=== PATIENT | female | born 1955 | race Caucasian/White ===

== ENCOUNTER 2019-04-18 01:08 | Day surgery (SDC) | payer OTHER, SELFPAY ==
[2019-04-17 09:42] VITALS: BMI 32.3
[2019-04-18 08:19] LABS: Glucose Point of Care 129 (65-105)
[2019-04-18] MEDS: LACTATED RINGERS 1,000 ML 150 ML IV CONT (08:20)
[2019-04-18 08:22] VITALS: BP 184/80; PULSE 74; RESP 20; TEMP 36.2; O2SAT 98; BMI 32.7
--- NOTE | 2019-04-18 09:02 | P.CONGI_ITS ---
Assessment and Plan Additional Plan This is a 63-year-old white female patient seen in evaluation at the request of Dr. Dale. Patient presents for neoplasia screening. Her current weight appetite bowel movements are normal. She denies abdominal pain she has had no bleeding. Her bowel habits are normal. Family history is significant her father and sister have had colon polyps. Past medical history is significant for diabetes and hypertension. She has a history of a TIA. Current medications include hydrochlorothiazide, aspirin, metoprolol, and pravastatin, she has no stated drug allergies. Physical exam reveals her to be alert. Vital signs stable. HEENT exam unremarkable. Lungs are clear to auscultation and percussion. Heart is without murmur or extra sounds. Abdominal exam bowel sounds are present soft nontender with no organomegaly. Digital external rectal exam normal. Impression 1. Family history of colon polyps. Plan is for neoplasia screening colonoscopy now and at 5 year intervals in the future. GI Consult Note Consult date/time: 04/18/19 09:02 HPI: Renea Wylie is a 63 year old female [facility] Past Medical History Medical History (Updated 02/17/19 @ 09:47 by Alok Dale MD) Bursitis of left hip Dyslipidemia Environmental allergies Essential (primary) hypertension History of TIA (transient ischemic attack) TIA (transient ischemic attack) Type 2 diabetes mellitus without complication, without long-term current use of insulin Surgical History Surgical History Hx of dilation and curettage 01/2008 Family History Family History (Updated 02/17/19 @ 09:29 by Chikis Ward) Father Family history of coronary artery disease, Onset Age: 78 Grandparent Cancer Father Aneurysm Social History Social History Smoking status: Never smoker Second hand tobacco smoke exposure: No Alcohol intake: never Substance use: never Substance use type: does not use Gender identity (if verbalized by the patient): Female Meds Home Medications and Allergies Home Medications Medication Instructions Recorded Confirmed Type aspirin 325 mg tablet 325 mg PO DAILY 12/30/18 04/17/19 History canagliflozin 300 mg tablet 300 mg PO DAILY 12/30/18 04/17/19 History metoprolol succinate 25 mg 25 mg PO DAILY 12/30/18 04/17/19 History tablet,extended release 24 hr losartan 100 1 tablet PO DAILY #90 tablet 04/14/19 04/17/19 Rx mg-hydrochlorothiazide 25 mg tablet pravastatin 40 mg tablet 40 mg PO DAILY #90 tablet 04/14/19 04/17/19 Rx Allergies Allergy/AdvReac Type Severity Reaction Status Date / Time No Known Allergies Allergy Unknown Unverified 04/18/19 08:21 Vital Signs Vital Signs - 24 hr 04/18/19 08:22 Temperature 36.2 C L Pulse Rate 74 Respiratory Rate 20 Blood Pressure 184/80 H Pulse Oximetry 98
--- NOTE | 2019-04-18 09:21 | WPDANESEPPF ---
Anes - Initial Pre Proc Eval Procedure: Operation Date: 04/18/19 09:00 Proposed Procedures p Screening Colonoscopy - Karl Land MD Date/Time: 04/18/19 09:21 Surgeon: Karl Land MD Pre Op Diagnosis: Neoplasm Screening/ Fam Hx Colon Polyps Patient Data Age: 63 Gender: F Height: 5 ft 6 in Weight: 91.9 kg Last Vital Signs Temp 97.1 F L 04/18/19 08:22 Pulse 74 04/18/19 08:22 Resp 20 04/18/19 08:22 BP 184/80 H 04/18/19 08:22 Pulse Ox 98 04/18/19 08:22 Allergies Allergy/AdvReac Type Severity Reaction Status Date / Time No Known Allergies Allergy Unknown Unverified 04/18/19 08:21 Home Medications Medication Instructions Recorded Confirmed Type aspirin 325 mg tablet 325 mg PO DAILY 12/30/18 04/17/19 History canagliflozin 300 mg tablet 300 mg PO DAILY 12/30/18 04/17/19 History metoprolol succinate 25 mg 25 mg PO DAILY 12/30/18 04/17/19 History tablet,extended release 24 hr losartan 100 1 tablet PO DAILY #90 tablet 04/14/19 04/17/19 Rx mg-hydrochlorothiazide 25 mg tablet pravastatin 40 mg tablet 40 mg PO DAILY #90 tablet 04/14/19 04/17/19 Rx Laboratory Tests 04/18/19 08:14 POC Capillary Glucose 129 mg/dl H mg/dl (65-105) Patient hx anesthesia problems: none Family hx anesthesia problems: none PMFSH Past Medical History Medical History (Updated 02/17/19 @ 09:47 by Alok Dale MD) Bursitis of left hip Dyslipidemia Environmental allergies Essential (primary) hypertension History of TIA (transient ischemic attack) TIA (transient ischemic attack) Type 2 diabetes mellitus without complication, without long-term current use of insulin Surgical History Surgical History Hx of dilation and curettage 01/2008 Family History Family History (Updated 02/17/19 @ 09:29 by Chikis Ward) Father Family history of coronary artery disease, Onset Age: 78 Grandparent Cancer Father Aneurysm Social History Social History (Reviewed 02/17/19 @ 09:27 by Chikis Stevens Smoking status: Never smoker Second hand tobacco smoke exposure: No Alcohol intake: never Substance use: never Substance use type: does not use Gender identity (if verbalized by the patient): Female Anes - Eval Final PreProcedure Day of Procedure 04/18/19 09:21 Patient weight: obese Heart: regular rate and rhythm Lungs: clear to auscultation Airway: Mallampati scale class III Neurological: alert and oriented Last oral intake: >/= 8 hours ASA classification: III Emergent: no Anesthetic plan: proceed Anesthesia type and monitoring: general GIVS and standard monitoring Informed Consent: The patient's anesthetic plan and its attendant risks and benefits were discussed with the patient/family/POA. Questions were solicited and answers provided to the satisfaction of the patient/family/POA.
[2019-04-18 10:24] VITALS: BP 119/63; PULSE 69; RESP 21; O2SAT 98
[2019-04-18 10:34] VITALS: BP 128/67; PULSE 67; RESP 17; O2SAT 99
[2019-04-18 10:44] VITALS: BP 130/67; PULSE 65; RESP 15; O2SAT 99
== END 2019-04-18 11:00 | disposition home or self-care (01) ==
PROVIDERS: PCP Family Medicine; Visit Provider Internal Medicine Gastroenterology
PROC: 0DJD8ZZ Inspection of Lower Intestinal Tract, Via Natural or Artificial Opening Endoscopic (ICD-10-PCS; CPT 45378; principal; 2019-04-18 09:00)
DX: Z12.11 Encounter for screening for malignant neoplasm of colon (principal); K57.30 Diverticulosis of large intestine without perforation or abscess without bleeding; K64.8 Other hemorrhoids; Z83.71 Family history of colonic polyps; I10 Essential (primary) hypertension; E11.9 Type 2 diabetes mellitus without complications; E78.5 Hyperlipidemia, unspecified; Z86.73 Personal history of transient ischemic attack (TIA), and cerebral infarction without residual deficits; Z79.82 Long term (current) use of aspirin; E66.9 Obesity, unspecified; Z68.32 Body mass index [BMI] 32.0-32.9, adult
CPT/HCPCS: 45378; J2704; J7120

== ENCOUNTER 2020-01-17 08:02 | Outpatient (CLI) | payer OTHER, SELFPAY ==
--- NOTE | ~2020-01-17 | MM_ITS ---
EXAMINATION: MM screening [facility] BI w sarabjit HISTORY: Screening mammogram TECHNIQUE: Craniocaudal and mediolateral oblique 3-D tomosynthesis images were obtained and synthetic 2-D images were generated. CAD analysis was submitted and interpreted. COMPARISON: 12/21/2018, 01/24/2013, 11/14/2011 BREAST PARENCHYMAL COMPOSITION: There are scattered areas of fibroglandular density. FINDINGS: Stable bilateral breast masses are considered benign given the lack of interval change. The re is no evidence of suspicious mass, calcification, or architectural distortion to suggest malignanc y in either breast. There has been no suspicious interval change. IMPRESSION: 1. No mammographic evidence of malignancy. 2. Recommend routine screening mammography in one year. BI-RADS Category 2: Benign finding(s). Reviewed, dictated and finalized at location A. ER
== END 2020-01-17 08:03 | disposition home or self-care (01) ==
LOC: ANHIMG 08:04
PROVIDERS: PCP Family Medicine; Visit Provider Student in an Organized Health Care Education/Training Program
DX: Z12.31 Encounter for screening mammogram for malignant neoplasm of breast (principal)
CPT/HCPCS: 77063; 77067

== ENCOUNTER 2020-05-17 16:48 | Outpatient (CLI) | payer OTHER, SELFPAY | END 2020-05-17 16:49 | disposition home or self-care (01) | LOC: ANHCOVIDVC 16:48 | PROVIDERS: PCP Family Medicine | DX: Z23 Encounter for immunization (principal) | CPT/HCPCS: 0001A; 91300 ==

== ENCOUNTER 2020-06-07 16:46 | Outpatient (CLI) | payer OTHER, SELFPAY | END 2020-06-07 16:47 | disposition home or self-care (01) | LOC: ANHCOVIDVC 16:46 | PROVIDERS: PCP Family Medicine | DX: Z23 Encounter for immunization (principal) | CPT/HCPCS: 0002A; 91300 ==

== ENCOUNTER 2021-04-03 09:24 | Inpatient (IN) | payer OTHER, SELFPAY ==
[2021-04-03] VITALS (11 sets, daily range): BP systolic 103–137; BP diastolic 69–84; PULSE 95–134; RESP 15–21; TEMP 36.2–37.7; O2SAT 97–100
--- NOTE | ~2021-04-03 | CT_ITS ---
EXAMINATION: CT abdomen pelvis wo con DATE: 04/03/2021 14:45 INDICATION: Heavy vaginal bleeding TECHNIQUE: Computed tomography (CT) of the abdomen and pelvis was performed without intravenous contr ast. The dose-length product (DLP) was 817.53 mGy-cm. Automated exposure control and iterative recons truction technique were employed. COMPARISON: None FINDINGS: The lung bases are clear. The heart size is normal. There is a small sliding hiatal hernia. Within the limitations of noncontrast examination, liver, gallbladder, pancreas, and adrenal glands are normal. Punctate calcifications in an otherwise normal spleen likely represent healed granulomato us disease. The kidneys are unremarkable. No pathologically enlarged abdominal or pelvic lymph nodes are identified. There is no free intraperitoneal gas or evidence of bowel obstruction. The appendix i s normal. There is mild lumbar spondylosis. IMPRESSION: 1. No CT correlate for the patient's symptoms. Reviewed, dictated and finalized at location F. /[employer]
--- NOTE | ~2021-04-03 | US_ITS ---
EXAMINATION: US pelvic complete EXAM DATE: 04/03/2021 10:33 INDICATION: Vaginal bleeding . TECHNIQUE: Pelvic transabdominal sonogram was performed. There are multiple grayscale and Doppler im ages available for interpretation. There is no prior study for comparison. FINDINGS: Uterus measures 10.7 x 7.1 x 8.2 cm, and is morphologically normal. Endometrial stripe me asures 6 mm, within normal limits. There is no free pelvic fluid. Right adnexa: The ovary measures 2.8 x 1.5 x 1.8 cm and is morphologically normal. Ovarian vascular f low confirmed. Left adnexa: The ovary measures 2.4 x 1.3 x 1.5 cm and is morphologically normal. Ovarian vascular fl ow confirmed. IMPRESSION: Unremarkable pelvic ultrasound exam. Reviewed, dictated and finalized at location A. D ESCORT
--- NOTE | ~2021-04-03 | US_ITS ---
EXAMINATION: US renal BI EXAM DATE: 04/04/2021 14:14 INDICATION: Elevated creatinine. TECHNIQUE: Multiple grayscale and Doppler images of the kidneys were obtained (by a technologist who performed the scan) and subsequently reviewed. There is no prior study for comparison. FINDINGS: Right kidney: There is normal contour and echogenicity. It measures 10.4 x 4.4 x 5.4 centimeters. T here are no focal renal lesions identified. There is no hydronephrosis. Left kidney: There is normal contour and echogenicity. It measures 10.1 x 3.7 x 4.9 centimeters. Th ere are no focal renal lesions identified. There is no hydronephrosis. Bladder unremarkable. IMPRESSION: 1. Sonographically unremarkable kidneys. Reviewed, dictated and finalized at location B. [employer]
[2021-04-03 09:54] LABS: Basophils Absolute Auto 0.1 K/mm3 (0.0-0.1); Basophils Percent Auto 0.6 % (0.2-1.2); Eosinophils Percent Auto 0.1 % (0-4.4); Hematocrit 42.3 % (37.0-47.0); Hemoglobin 13.6 g/dL (12.0-15.0); Immature Granulocyte Absolute 0.07 K/mm3 (0.00-0.031); Immature Granulocyte Percent A 0.5 % (0-0.5); Lymphocytes Absolute Auto 1.74 K/mm3 (0.9-3.2); Lymphocytes Percent Auto 13.1 % (18.3-44.2); Mean Corpuscular HGB Conc 32.2 g/dl (32-36); Mean Corpuscular Hemoglobin 30.3 pg (26-34); Mean Corpuscular Volume 94.2 fl (80-100); Mean Platelet Volume 10.1 fl (7.4-10.4); Monocytes Absolute Auto 0.5 K/mm3 (0.1-0.6); Monocytes Percent Auto 3.4 % (2.6-8.5); Neutrophils Percent Auto 82.3 % (45.5-73.1); Platelet Count Result 348 k/mm3 (150-375); Red Blood Count 4.49 M/mm3 (4.2-5.4); White Blood Count 13.3 K/mm3 (4.5-10.0)
[2021-04-03 10:05] LABS: INR 1.1; Prothrombin Time 13.5 Seconds (11.1-14.7)
--- NOTE | 2021-04-03 10:09 | ED.FEMALEGU ---
HPI - Female Genitourinary General Chief complaint: Vaginal Bleeding Stated complaint: Vaginal bleeding Time Seen by Provider: 04/03/21 09:47 Source: patient Mode of arrival: ambulatory Limitations: no limitations History of Present Illness HPI Narrative: 65 years old white female presented to the ED with vaginal bleeding with a lot of blood clots started 5 AM today. Patient on aspirin. Patient denies having similar symptoms after menopause. Urinary patient denies any family history of breast cancer, ovarian cancer or uterine cancer. History of diabetes, hypertension, hyperlipidemia, patient does not smoke or drink or uses drugs. Patient denies any fever chills nausea vomiting diarrhea constipation urinary symptoms or recent sexual intercourse Related Data Home Medications Medication Instructions Recorded Confirmed aspirin 81 mg tablet,delayed 81 mg PO DAILY 04/05/20 02/28/21 release Allergies Allergy/AdvReac Type Severity Reaction Status Date / Time metformin AdvReac Intermediate Diarrhea Verified 04/03/21 09:42 Review of Systems Review of Systems: CONSTITUTIONAL: Denies fever, chills, or sweats. EYES: Denies visual changes, redness, or discharge. ENT: Denies rhinorrhea, congestion, sore throat, or otalgia. CARDIOVASCULAR: Denies chest pain, palpitations, or edema. RESPIRATORY: Denies cough or dyspnea. GASTROINTESTINAL: Denies abdominal pain, nausea, vomiting, or diarrhea. GENITOURINARY: Denies dysuria or hematuria. SKIN: Denies rash or itching. MUSCULOSKELETAL: Denies back pain, joint pain, or myalgia. NEUROLOGIC: Denies headache, numbness, or weakness. PSYCHIATRIC: Denies anxiety or depression. [facility] Past Medical History Medical History BMI 33.0-33.9,adult BMI 34.0-34.9,adult BMI over 35 Bursitis of left hip Dyslipidemia Environmental allergies Essential (primary) hypertension History of one miscarriage History of TIA (transient ischemic attack) History of vaginal delivery x 2 Indigestion Rash TIA (transient ischemic attack) Type 2 diabetes mellitus without complication, without long-term current use of insulin Surgical History Surgical History Hx of dilation and curettage 01/2008 Family History Family History Father Family history of coronary artery disease, Onset Age: 78 Grandparent Cancer Father Aneurysm Social History Social History Second hand tobacco smoke exposure: No Alcohol intake: never Substance use: never Substance use type: does not use Gender identity (if verbalized by the patient): Female Exam Narrative: General appearance: Well-developed, well-nourished Skin: Normal color Head: Normocephalic, nontraumatic Eyes: Clear conjunctiva ENT: Oropharynx normal, ears normal, nose normal Neck: Supple, nontender Chest and respiratory: Airway patent, no respiratory distress, no accessory muscle use Heart: Regular rate/rhythm Abdomen: Soft, nontender, no organomegaly, quiet bowel sounds Vascular: Normal peripheral pulses, normal capillary refill. Musculoskeletal: Normal range of motion, nontender back Neurologic: Alert and oriented ?3, [employer] is normal as tested, no gross motor deficit : External Female Exam: normal external appearance Speculum Exam - Vagina: normal appearance of the vagina Bimanual exam- vagina & uterus: normal palpation Bimanual Exam- Adnexa, other: no masses OB/external & speculum: Active bleeding present (Active bleeding, mild, a lot of blood clots)
[2021-04-03 10:12] LABS: Alanine Aminotransferase 32 U/L (4-35); Albumin Level 4.5 g/dL (3.5-5.1); Alkaline Phosphatase 100 U/L (38-126); Anion Gap 15 mmol/L (8-16); Aspartate Amino Transferase 36 U/L (14-36); Bilirubin,Total 1.1 mg/dL (0.2-1.3); Blood Urea Nitrogen 18 mg/dL (7-17); Calcium 8.7 mg/dL (8.4-10.2); Carbon Dioxide 21 mmol/L (22-30); Chloride 102 mmol/L (98-107); Estimated Glomerular Filt Rate 35; Glucose 283 mg/dL (65-110); Potassium 3.5 mmol/L (3.4-5.0); Sodium 138 mmol/L (137-145)
[2021-04-03] MEDS: SODIUM CHLORIDE 0.9% IV 1,000 ML 999 ML IV CONT (12:01)
[2021-04-03] MEDS: ONDANSETRON INJ 4 MG/2 ML VIAL IV PUSH (12:14)
[2021-04-03] MEDS: MORPHINE SULFATE (*CRX) 4 MG/ML INJ IV PUSH (12:17)
--- NOTE | 2021-04-03 13:33 | PM.IMHP ---
H&P: HPI History of Present Illness Date/Time: 04/03/21 13:33 Patient presented to the ED with complaints of heavy vaginal bleeding starting this am at 0500 when she woke up. She states that for two weeks she had noticed dark spotting with wiping and had some abdominal cramping. She has been menopausal for years. She was passing clots. She denied lightheadedness and dizziness this am. I spoke to her around 0730 when she called the answering service due to the bleeding and was not having any hypovolemic symptoms. She was informed if bleeding persist for another hour if saturating more than a pad an hour and/or lightheaded or dizzy to come in to the ED. She did start having lightheadedness and went to ED in ED she was symptomatic and moderate blood and clots in the vagina. She did receive IV fluids which improved her hypovolemic symptoms. H/H, platelets normal. Pelvic ultrasound showed EM 6mm. No other findings. She denies any recent intercourse or vaginal penetration or any excessive activity recently. She has never had postmenopausal bleeding before. Last pap in 10/2020 normal neg HPV. No smoking history. 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 Denies pelvic pain. Her creatinine was elevated which has been mildly in past on chart review. Coags normal today. Chief Complaint: vaginal bleeding Review of Systems Review of Systems: All systems reviewed & are unremarkable except as noted in HPI and below Eyes: Eyes: Reports no additional eye complaints Cardiovascular: Cardiovascular: Reports no additional cardiovascular complaints, Denies chest pain and Denies dyspnea Respiratory: Respiratory: Reports no additional respiratory complaints Gastrointestinal: Gastrointestinal: Denies abdominal pain, Denies change in bowel habits, Denies diarrhea, Denies nausea, Denies vomiting and Reports other (no unexplained weight loss) Genitourinary: Genitourinary: Denies pelvic pain Integumentary/Breasts: Skin/Breast: Reports system reviewed and no additional complaints, except as docu Neurologic: Reports system reviewed and no additional complaints, except as documented PMFSH Past Medical History Medical History BMI 33.0-33.9,adult BMI 34.0-34.9,adult BMI over 35 Bursitis of left hip Dyslipidemia Environmental allergies Essential (primary) hypertension History of one miscarriage History of TIA (transient ischemic attack) History of vaginal delivery x 2 Indigestion Rash TIA (transient ischemic attack) Type 2 diabetes mellitus without complication, without long-term current use of insulin Surgical History Surgical History Hx of dilation and curettage 01/2008 Family History Family History Father Family history of coronary artery disease, Onset Age: 78 Grandparent Cancer Father Aneurysm Social History Social History Second hand tobacco smoke exposure: No Alcohol intake: never Substance use: never Substance use type: does not use Gender identity (if verbalized by the patient): Female Meds Home Medications and Allergies Home Medications Medication Instructions Recorded Confirmed Type aspirin 81 mg tablet,delayed 81 mg PO DAILY 04/05/20 02/28/21 History release empagliflozin 25 mg tablet See Rx Instructions .ROUTE 10/04/20 02/28/21 Rx .COMPLEX #90 each dulaglutide 0.75 mg/0.5 mL 0.75 mg SUBCUT WEEKLY #2 ml 10/28/20 02/28/21 Rx subcutaneous pen injector losartan 100 1 tablet PO DAILY #90 tablet 11/02/20 02/28/21 Rx mg-hydrochlorothiazide 25 mg tablet pravastatin 40 mg tablet See Rx Instructions .ROUTE 11/02/20 02/28/21 Rx .COMPLEX #90 each triamcinolone acetonide 0.1 % 1 applic TOPICAL BID #80 g 11/15/20 02/28/21 Rx topical cream metoprolol succinate 25 mg See Rx Instructions .ROUTE
--- NOTE | 2021-04-03 13:44 | PC.NURSE ---
DR RAMSEY AT BEDSIDE FOR EXAM AND BIOPSY. PT TOLERATED THE PROCEDURE WELL. VAGINAL PACKING WAS PLACED BY DR RAMSEY WITH NO BLOODY SHOW NOTED THUS FAR.
--- NOTE | 2021-04-03 14:05 | W.PM.PROC2 ---
Procedure Note - Detailed Date of Procedure 04/03/21 Pre-op Diagnosis Vaginal bleeding Post-op Diagnosis same Procedure Performed Endometrial biopsy Surgeon Damaso Delgado MD Anesthesia none Indications Postmenopausal bleeding Findings Moderate amount of tissue and clot Description of Procedure After informed consent obtained. Speculum inserted. Clots cleared from vagina and cervix. Cervix prepped with betadine. Single tooth tenaculum placed on cervix. Uterus sound to 8 cm. 3 passes of with endometrial pipelle since a moderate amount of clot obtained. Estimated Blood Loss 5 Drains No Packing Yes (vag) Pathology yes (pap also obtained.) Complications No immediate complications Condition stable Disposition observation
[2021-04-03 15:08] LABS: Hemoglobin 12.1 g/dL (12.0-15.0)
--- NOTE | 2021-04-03 15:36 | PC.NURSE ---
This patient, Renea Wylie, was received from E.. on 04/03/21 at 1536. Patient oriented to unit policies and routines
[2021-04-03] MEDS: LOSARTAN POTASSIUM 100 MG TABLET PO (18:36)
[2021-04-03] MEDS: PRAVASTATIN SODIUM 20 MG TABLET 40 MG PO (18:37)
[2021-04-03] MEDS: METOPROLOL TARTRATE 25 MG TABLET PO (18:37)
[2021-04-03 21:26] LABS: Basophils Percent Auto 0.2 % (0.2-1.2); Hematocrit 32.6 % (37.0-47.0); Hemoglobin 10.9 g/dL (12.0-15.0); Immature Granulocyte Absolute 0.05 K/mm3 (0.00-0.031); Immature Granulocyte Percent A 0.4 % (0-0.5); Lymphocytes Absolute Auto 1.23 K/mm3 (0.9-3.2); Lymphocytes Percent Auto 9.5 % (18.3-44.2); Mean Corpuscular HGB Conc 33.4 g/dl (32-36); Mean Corpuscular Hemoglobin 30.7 pg (26-34); Mean Corpuscular Volume 91.8 fl (80-100); Mean Platelet Volume 9.9 fl (7.4-10.4); Monocytes Absolute Auto 0.7 K/mm3 (0.1-0.6); Monocytes Percent Auto 5.3 % (2.6-8.5); Neutrophils Percent Auto 84.6 % (45.5-73.1); Platelet Count Result 255 k/mm3 (150-375); Red Blood Count 3.55 M/mm3 (4.2-5.4); Red Cell Distribution Width 13.1 % (11.5-14.5)
[2021-04-04] VITALS (8 sets, daily range): BP systolic 107–143; BP diastolic 56–72; PULSE 76–92; RESP 14–18; TEMP 36.5–37.7; O2SAT 95–98
[2021-04-04 05:02] LABS: Hematocrit 30.7 % (37.0-47.0); Hemoglobin 10.2 g/dL (12.0-15.0)
[2021-04-04 05:11] LABS: Anion Gap 8 mmol/L (8-16); Blood Urea Nitrogen 28 mg/dL (7-17); Carbon Dioxide 24 mmol/L (22-30); Chloride 103 mmol/L (98-107); Estimated Glomerular Filt Rate 24; Glucose 129 mg/dL (65-110); Potassium 3.9 mmol/L (3.4-5.0); Sodium 135 mmol/L (137-145)
[2021-04-04] MEDS: LACTATED RINGERS 1,000 ML 125 ML (07:58)
[2021-04-04 11:49] LABS: Add Urine Microscopic? YES; Appearance Urine Turbid (Clear); Bacteria Urine Trace /hpf; Bilirubin Urine Negative (Negative); Blood Urine 3+ (Negative); Color Urine Amber (Yellow); Glucose Urine UA 3+ mg/dL (Negative); Ketones Urine Negative (Negative); Leukocyte Esterase Ur Trace LEU/UL (NEGATIVE); Mucus Urine Rare /lpf; Nitrate Urine Negative (Negative); Protein Urine Negative (Negative); Specific Grav Ur 1.027 (1.001-1.035); Squamous Epithelial Cell Urine Moderate /hpf (Few); Urobilinogen Urine Negative mg/dL (<2.0); WBC Urine 21-30 /hpf (0-3)
[2021-04-04 11:52] LABS: Creatine Kinase 80 U/L (30-135)
[2021-04-04 12:20] LABS: Creatinine Urine 228.3 mg/dL; Total Protein Urine Random 6 mg/dL; Ur Ttl Prot Creatinine Ratio 0.03 mg/mg (0-0.20)
[2021-04-04 12:31] LABS: Sodium Urine Random 36 meq/L
--- NOTE | 2021-04-04 13:11 | PM.CNNEP ---
Assessment and Plan Additional Plan 1. the patient has Chronic kidney disease. The creatinine before her admission today was in 2019 it was 1.2. It is unclear what her true baseline is. We can ask Dr. Figueroa's office to send over some blood work. most likely her elevated creatinine is due to diabetes and/or hypertension. Depending on how much protein is in the urine will determine how much each is contributing. There are other causes of kidney disease such as glomerulonephritis, interstitial nephritis, obstruction, cystic disease, and stone disease. She does not really have any signs or symptoms of any of these. 2. The patient has acute kidney injury as well. This is in the setting of significant vaginal bleeding. She has blood glucose a few red cells and a few white cells in the urine. We can check a urine culture. It is unclear how much of this is contamination from her vagina. Will check a urine culture and see where this goes. She has does not have any symptoms of infection. With all the bleeding, dehydration may be playing a role. Her hemoglobin is not low enough to lead directly to poor renal perfusion though. There are other causes of kidney disease as well including obstruction, acute nephritis, allergic interstitial nephritis, but there are no signs or symptoms or suggestions from the history that these would be playing a role. I agree with continuing the IV fluids and see how she does. 3. anemia. The patient is getting evaluated for why she is bleeding vaginally. 4. Hematuria this is probably contamination. We can repeat the urinalysis once the vaginal bleeding is solved. History of Present Illness Reason for Consult Consult date: 04/04/21 Chief Complaint Chief complaint: Dysfunctional Uterine Bleeding, RICK History of Present Illness Narrative: Renea is a very pleasant 65-year-old lady who has Diabetes, hypertension, hyperlipidemia, obesity, TIA, indigestion, and chronic kidney disease. She says that Dr. Hi has been watching her kidneys for the last few years. Her creatinine in January of 2020 was 1.22. The patient says that she has been spotting for the last few weeks. Then she started having more and more hemorrhaging with clots. She came to the ER. She had clots in her vagina as well. The patient was admitted. She was given IV fluids. Her anemia was never bad enough to transfuse. Her blood pressure was actually okay. Her creatinine was checked and it was 1.5 on admission. She was felt to be dehydrated so they continued fluids overnight and this morning the creatinine was up to 2.1 so renal consultation was requested. The patient says that she has some blood-stained urine but it was probably coming from the vagina. She has not had kidney stones or foamy urine. She had 1 bladder infection lately but nothing very frequent. She is not taking any Advil, Aleve ibuprofen or Motrin. She just takes her prescription medications. She is not on any diuretics. she has not been on antibiotics lately. She denies skin rash, hair loss in clumps, sores in her mouth, hemoptysis or epistaxis. No vomiting or blood in her stools. No bruising. Review of Systems Constitutional: Constitutional: Reports no additional constitutional complaints Eyes: Eyes: Reports no additional eye complaints ENT: Reports system reviewed and no additional complaints, except as documented Cardiovascular: Cardiovascular: Reports no additional cardiovascular complaints Respiratory: Respiratory: Reports no additional respiratory complaints Gastrointestinal: Gastrointestinal: Reports no additional gastrointestinal complaints Genitourinary: Genitourinary: Reports no additional female genitourinary complaints Musculoskeletal: Musculoskeletal: Reports no additional musculoskeletal complaints Integumentary/Breasts: Skin/Breast: Reports system reviewed and no additional complaints, except as docu Neurologic
--- NOTE | 2021-04-04 14:30 | PC.NURSE ---
24 hr. urine collection started. Instructed pt. on collection process.
--- NOTE | 2021-04-04 14:59 | PM.GYNPNOP ---
EXPANSION JOINT FINISHER - A/P Assessment and plan (1) Postmenopausal bleeding: Code(s): N95.0 - Postmenopausal bleeding Status: Acute Assessment and Plan: Bleeding is minimal to light today. Awaiting results of endometrial biopsy done yesterday. Pelvic imaging normal. Repeat blood count tomorrow morning (2) Elevated serum creatinine: Code(s): R79.89 - Other specified abnormal findings of blood chemistry Status: Acute Assessment and Plan: Appreciate nephrology consult. Dr. Villa ordered repeat labs tomorrow, so she will be staying overnight tonight again with earliest possible discharge tomorrow Time Spent With Patient Time: Total time spent is greater than 50% in coordination of care (as documented) at patient's floor/unit and/or counseling patient: Time with patient: less than 15 minutes EXPANSION JOINT FINISHER- PN:Subj Post-Op Subjective Date/time seen: 04/04/21 14:59 Interval history: Her bleeding is minimal, just dark brown spotting to light flow. Packing was removed a few hours ago. She felt lightheaded yesterday but none today. No N/V, chest pain, SOB. No urinary complaints. Mild cramping but no other pain. Exam Const: General: healthy appearing, no acute distress, alert and awake Resp: Auscultation: clear to auscultation bilaterally Cardio: Rate: regular rate Rhythm: regular rhythm GI: Inspection: non-distended GI Palp: Yes Soft to palpation and No Tenderness to palpation present (GI) Extrem: General: no pedal edema and no calf tenderness Psych: Mental Status: mental status grossly normal EXPANSION JOINT FINISHER - PN: Obj Data Vital Signs Vital Signs: Vital Signs - 24 hr 04/03/21 15:20 04/03/21 16:00 04/03/21 18:37 Temperature 36.2 C L Pulse Rate 100 108 H 98 Respiratory Rate 16 18 Blood Pressure 132/77 137/76 Pulse Oximetry 99 98 04/03/21 20:00 04/04/21 00:00 04/04/21 04:00 Temperature 37.7 C H 37.3 C 37.2 C Pulse Rate 95 78 77 Respiratory Rate 16 14 16 Blood Pressure 122/72 107/60 107/58 L Pulse Oximetry 97 97 95 04/04/21 08:15 04/04/21 11:32 Temperature 36.5 C 36.6 C Pulse Rate 78 87 Respiratory Rate 18 18 Blood Pressure 129/67 138/60 Pulse Oximetry 98 Intake/Output Intake/Output: Intake & Output 04/01/21 04/02/21 04/03/21 04/04/21 23:59 23:59 23:59 23:59 Intake Total 1500 700 Output Total 1300 Balance 1500 -600 Meds/Results Medications: Active Medications Generic Name Dose Route Start Last Admin Trade Name Freq PRN Reason Stop Dose Admin Losartan Potassium 100 mg 04/03/21 19:00 04/03/21 18:36 Losartan Potassium 100 Mg Tablet PO 100 mg DAILY NAOMY Administration Metoprolol Tartrate 25 mg 04/03/21 19:00 04/03/21 18:37 Metoprolol Tartrate 25 Mg Tablet PO 25 mg Q12HR NAOMY Administration Ondansetron HCl 4 mg 04/03/21 13:36 Ondansetron Inj 4 Mg/2 Ml Vial IV PUSH Q4H PRN Nausea Pravastatin Sodium 40 mg 04/03/21 19:00 04/03/21 18:37 Pravastatin Sodium 20 Mg Tablet PO 40 mg DAILY NAOMY Administration Radiology Results: ITS Impressions Pelvis Ultrasound 04/03/21 10:48 IMPRESSION: Unremarkable pelvic ultrasound exam. Abdomen/Pelvis CT 04/03/21 14:54 IMPRESSION: 1. No CT correlate for the patient's symptoms. Renal Ultrasound 04/04/21 14:15 IMPRESSION: 1. Sonographically unremarkable kidneys. Labs CBC & Chem 7: 04/04/21 04:30 04/04/21 04:30 Labs: Laboratory Results - last 24 hr 04/03/21 04/03/21 04/04/21 15:03 21:18 04:30 WBC 13.0 H RBC 3.55 L Hgb 12.1 10.9 L Hct 36.0 L 32.6 L MCV 91.8 MCH 30.7 MCHC 33.4 RDW 13.1 Plt Count 255 MPV 9.9 Immature Gran % (Auto) 0.4 Neut % (Auto) 84.6 H Lymph % (Auto) 9.5 L Story % (Auto) 5.3 Eos % (Auto) 0.0 Baso % (Auto) 0.2 Lymph # (Auto) 1.23 Story # (Auto) 0.7 H Eos # (Auto) 0.0 Baso # (Auto) 0.0 Abs Immat Gran (auto) 0.05 H Absolute
[2021-04-04] MEDS: METOPROLOL TARTRATE 25 MG TABLET PO (17:49)
[2021-04-04] MEDS: PRAVASTATIN SODIUM 20 MG TABLET 40 MG PO (17:50)
[2021-04-04] MEDS: LOSARTAN POTASSIUM 100 MG TABLET PO (17:50)
[2021-04-04] MEDS: ACETAMINOPHEN 325 MG TABLET 650 MG PO (17:51)
[2021-04-04 18:46] LABS: Complement C3 107 mg/dL (88-165)
[2021-04-04 19:03] LABS: Erythrocyte Sedimentation Rate 46 mm/hr (0-20)
[2021-04-04 20:01] LABS: Anion Gap 5 mmol/L (8-16); Blood Urea Nitrogen 29 mg/dL (7-17); Calcium 8.1 mg/dL (8.4-10.2); Carbon Dioxide 26 mmol/L (22-30); Chloride 104 mmol/L (98-107); Estimated Glomerular Filt Rate 30; Glucose 147 mg/dL (65-110); Potassium 3.9 mmol/L (3.4-5.0); Sodium 135 mmol/L (137-145)
[2021-04-04] MEDS: SODIUM CHLORIDE 0.9% IV 1,000 ML 75 ML IV CONT (20:37)
[2021-04-05 04:00] VITALS: BP 139/70; PULSE 72; RESP 16; TEMP 37.2; O2SAT 97
[2021-04-05 05:28] LABS: Hematocrit 29.5 % (37.0-47.0); Hemoglobin 9.8 g/dL (12.0-15.0); Mean Corpuscular HGB Conc 33.2 g/dl (32-36); Mean Corpuscular Volume 93.4 fl (80-100); Mean Platelet Volume 10.1 fl (7.4-10.4); Platelet Count Result 231 k/mm3 (150-375); Red Blood Count 3.16 M/mm3 (4.2-5.4); Red Cell Distribution Width 13.3 % (11.5-14.5); White Blood Count 11.8 K/mm3 (4.5-10.0)
[2021-04-05 05:38] LABS: Albumin Level 3.8 g/dL (3.5-5.1); Anion Gap 8 mmol/L (8-16); Blood Urea Nitrogen 24 mg/dL (7-17); Calcium 8.1 mg/dL (8.4-10.2); Carbon Dioxide 25 mmol/L (22-30); Chloride 109 mmol/L (98-107); Estimated Glomerular Filt Rate 38; Glucose 122 mg/dL (65-110); Sodium 142 mmol/L (137-145)
[2021-04-05 07:00] VITALS: BP 116/66; PULSE 78; RESP 18; TEMP 36.4
--- NOTE | 2021-04-05 07:48 | PM.GYNPNOP ---
RULES EXAMINER - A/P Assessment and plan (1) Postmenopausal bleeding: Code(s): N95.0 - Postmenopausal bleeding Status: Acute Assessment and Plan: Bleeding now minimal to light. Mild anemia but no acute drop in blood count over last day or so. Endometrial biopsy results still pending. May be discharged home from gynecologic perspective and follow up in office within next week (2) Elevated serum creatinine: Code(s): R79.89 - Other specified abnormal findings of blood chemistry Status: Acute Assessment and Plan: Creatinine improving. She is in process of collecting 24 hour urine. Appreciate continued input from nephrology including follow up recommended after discharge Time Spent With Patient Time: Total time spent is greater than 50% in coordination of care (as documented) at patient's floor/unit and/or counseling patient: Time with patient: less than 15 minutes RULES EXAMINER- PN:Elenita Post-Op Subjective Date/time seen: 04/05/21 07:48 She has had light dark brown bleeding, much chicken raiser than a period, with very small clots the size of coins or less. No chest pain, shortness of breath,or dizziness. Mild cramping similar to menstrual cramps but no other pain Interval history: Her bleeding is minimal, just dark brown spotting to light flow. Packing was removed a few hours ago. She felt lightheaded yesterday but none today. No N/V, chest pain, SOB. No urinary complaints. Mild cramping but no other pain. Review of Systems Review of Systems: All systems reviewed & are unremarkable except as noted in HPI and below Exam Const: General: healthy appearing, no acute distress, alert and awake Resp: Auscultation: clear to auscultation bilaterally Cardio: Rate: regular rate Rhythm: regular rhythm GI: Inspection: non-distended GI Palp: Yes Soft to palpation and No Tenderness to palpation present (GI) Extrem: General: no pedal edema and no calf tenderness Psych: Mental Status: mental status grossly normal RULES EXAMINER - PN: Obj Data Vital Signs Vital Signs: Vital Signs - 24 hr 04/04/21 08:15 04/04/21 11:32 04/04/21 16:00 Temperature 36.5 C 36.6 C 37.1 C Pulse Rate 78 87 92 Respiratory Rate 18 18 18 Blood Pressure 129/67 138/60 118/56 L Pulse Oximetry 98 98 04/04/21 17:48 04/04/21 17:49 04/04/21 20:00 Temperature 36.8 C 37.7 C H Pulse Rate 77 78 76 Respiratory Rate 18 16 Blood Pressure 143/72 H 121/65 Pulse Oximetry 95 04/05/21 04:00 04/05/21 07:00 Temperature 37.2 C 36.4 C Pulse Rate 72 78 Respiratory Rate 16 18 Blood Pressure 139/70 116/66 Pulse Oximetry 97 Intake/Output Intake/Output: Intake & Output 04/02/21 04/03/21 04/04/21 04/05/21 23:59 23:59 23:59 23:59 Intake Total 1500 1650 300 Output Total 2550 700 Balance 1500 -900 -400 Meds/Results Medications: Active Medications Generic Name Dose Route Start Last Admin Trade Name Freq PRN Reason Stop Dose Admin Acetaminophen 650 mg 04/04/21 17:13 04/04/21 17:51 Acetaminophen 325 Mg Tablet PO 650 mg Q6H PRN Administration Mild Pain (1-3) or Fever Sodium Chloride 1,000 mls @ 75 mls/hr 04/04/21 20:15 04/04/21 20:37 Normal Saline Iv IV CONT 04/05/21 09:34 75 mls/hr .[id number] NAOMY Administration Losartan Potassium 100 mg 04/03/21 19:00 04/04/21 17:50 Losartan Potassium 100 Mg Tablet PO 100 mg DAILY NAOMY Administration Metoprolol Tartrate 25 mg 04/03/21 19:00 04/05/21 06:28 Metoprolol Tartrate 25 Mg Tablet PO Not Given Q12HR NAOMY Ondansetron HCl 4 mg 04/03/21 13:36 Ondansetron Inj 4 Mg/2 Ml Vial IV PUSH Q4H PRN Nausea Pravastatin Sodium 40 mg 04/03/21 19:00 04/04/21 17:50 Pravastatin Sodium 20 Mg Tablet PO 40 mg DAILY NAOMY Administration Radiology Results: ITS Impressions Pelvis Ultrasound 04/03/21 10:48 IMPRESSION: Unremarkable pelvic ultrasound exam. Abdomen/Pelvis CT 04/03/21 14:54 IMPRESSION: 1. No CT correlate for t
--- NOTE | 2021-04-05 10:41 | PM.DS ---
DS: Admitting Diagnosis Discharge Date 04/05/2021 Admitting Diagnosis Postmenopausal bleeding DS: Discharge Diagnosis Discharge Diagnosis (1) Postmenopausal bleeding: Code(s): N95.0 - Postmenopausal bleeding Status: Acute (2) Elevated serum creatinine: Code(s): R79.89 - Other specified abnormal findings of blood chemistry Status: Acute DS: Summary Hospital Course Hospital Course: She was admitted Monday 04/03 due to sudden onset heavy vaginal bleeding. She had endometrial biopsy and packing of vagina performed by Dr. Damaso Delgado and kept for observation. Pelvic ultrasound and CT abdomen / pelvic unremarkable. She had serial labs performed, and her blood count did go from 13 on initial evaluation to 9.8 on 04/05. Her bleeding slowed to spotting / light flow by Tuesday 04/04, and packing was removed. Bleeding remained very light for the remainder of hospital stay. Her creatinine level went from baseline 1.22 in 01/2020 to 2.1 04/04/2021 am. Nephrology consult was requested and done by Dr. Villa. Repeat creatinine later 04/04 was 1.7, then down to 1.4 on 04/05 am. Several laboratory tests including 24 hour urine was ordered by Dr. Villa. She had normal renal ultrasound 04/04. Endometrial biopsy result still pending at discharge. She is being discharged home 04/05 with advice to follow up within next week or so with Dr. Su, her regular street engineer. Dr. Villa advised she follow up with her primary physician, Dr. Hi. She was asked to call if extremely heavy vaginal bleeding, severe pain, or any other concerns. She expressed understanding and agreed with the plan. Status at Discharge Functional status at discharge: independent ambulation Overall status at discharge: patient is progressing back to baseline Time Spent with Patient Time attestation: Total time spent providing and/or coordinating discharge services: Time spent: Less than 30 minutes DS: Data Data Completed and Pending Pending studies at discharge: Pending at discharge 04/03/21 13:41 Surgical [PTH] Routine Labs on day of discharge: Labs from last 24 hours 04/05/21 04/05/21 04/04/21 04:51 04:51 18:21 WBC 11.8 H RBC 3.16 L Hgb 9.8 L Hct 29.5 L MCV 93.4 MCH 31.0 MCHC 33.2 RDW 13.3 Plt Count 231 MPV 10.1 ESR Sodium 142 135 L Potassium 4.0 3.9 Chloride 109 H 104 Carbon Dioxide 25 26 Anion Gap 8 5 L BUN 24 H 29 H Creatinine 1.40 H 1.70 H Estim Creat Clear Calc Not Reportable Not Reportable Estimated GFR 38 L 30 L Glucose 122 H 147 H Calcium 8.1 L 8.1 L Phosphorus 3.0 Total Creatine Kinase Albumin 3.8 Urine Color Urine Appearance Urine pH Ur Specific [place] Urine Protein Urine Glucose (UA) Urine Ketones Ur Blood (Man) Urine Nitrate Urine Bilirubin Urine Urobilinogen Ur Leukocyte Esterase Urine RBC Urine WBC Ur Squamous Epith Cells Urine Bacteria Urine Mucus U Random Total Protein Ur Random Sodium Urine Creatinine Protein/Creat Ratio 2 Serum Immunofixation RUBINA Screen Complement C3 Complement C4 Tot Complement (CH50) 04/04/21 04/04/21 04/04/21 18:21 18:21 18:21 WBC RBC Hgb Hct MCV MCH MCHC RDW Plt Count MPV ESR Sodium Potassium Chloride Carbon Dioxide Anion Gap BUN Creatinine Estim Creat Clear Calc Estimated GFR Glucose Calcium Phosphorus Total Creatine Kinase Albumin Urine Color Urine Appearance Urine pH Ur Specific [place] Urine Protein Urine Glucose (UA) Urine Ketones Ur Blood (Man) Urine Nitrate Urine Bilirubin Urine Urobilinogen Ur Leukocyte Esterase Urine RBC Urine WBC Ur Squamous Epith Cells Urine Bacteria Urine Mucus U Random Total Protein Ur Random Sodium Urine Creatinine Protein
--- NOTE | 2021-04-05 10:54 | PM.PNNEP ---
Progress Note: A&P Additional Plan 1. the patient has Chronic kidney disease. The creatinine before her admission today was in 2019 it was 1.2. today she is down to 1.4. So her chronic baseline is probably somewhere between 1.2 and 1.4. Most likely this is due to hypertension and diabetes. She has multiple tests pending to look for other causes but the chances of this are fairly low. 2. The patient has acute kidney injury as well. Urine electrolytes are pre renal. Renal ultrasound is normal UA shows some abnormal findings. We can repeat this as an outpatient. Most likely this is due to her vaginal bleeding and dehydration. The creatinine is better. I am okay with discharge today. She should follow up in my office. 3. anemia. The patient is getting evaluated for why she is bleeding vaginally. 4. Hematuria this is probably contamination. We can repeat the urinalysis once the vaginal bleeding is solved. Subjective Date/time seen: 04/05/21 10:54 Interval history: Renea is feeling better today. She slept well last night. No chest pain or shortness of breath. She is eating well. Review of Systems Cardiovascular: Cardiovascular: Reports no additional cardiovascular complaints Respiratory: Respiratory: Reports no additional respiratory complaints Gastrointestinal: Gastrointestinal: Reports no additional gastrointestinal complaints Genitourinary: Genitourinary: Reports no additional female genitourinary complaints Exam Narrative: WDWN in NAD skin no rash or subcu nodules head ncat lungs clear bilaterally cor reg no rub or gallop abd BS+ nontender and soft ext no edema. Objective Data Vital Signs Vital Signs: Vital Signs - 24 hr 04/04/21 11:32 04/04/21 16:00 04/04/21 17:48 Temperature 36.6 C 37.1 C 36.8 C Pulse Rate 87 92 77 Respiratory Rate 18 18 18 Blood Pressure 138/60 118/56 L 143/72 H Pulse Oximetry 98 98 04/04/21 17:49 04/04/21 20:00 04/05/21 04:00 Temperature 37.7 C H 37.2 C Pulse Rate 78 76 72 Respiratory Rate 16 16 Blood Pressure 121/65 139/70 Pulse Oximetry 95 97 04/05/21 07:00 Temperature 36.4 C Pulse Rate 78 Respiratory Rate 18 Blood Pressure 116/66 Pulse Oximetry Intake/Output Intake/Output: Intake & Output 02/2604/03/21 04/04/21 04/05/21 23:59 23:59 23:59 23:59 Intake Total 1500 1650 760 Output Total 2550 1100 Balance 1500 -900 -340 Meds/Results Medications: Active Medications Generic Name Dose Route Start Last Admin Trade Name Devanq PRN Reason Stop Dose Admin Acetaminophen 650 mg 04/04/21 17:13 04/04/21 17:51 Acetaminophen 325 Mg Tablet PO 650 mg Q6H PRN Administration Mild Pain (1-3) or Fever Losartan Potassium 100 mg 04/03/21 19:00 04/04/21 17:50 Losartan Potassium 100 Mg Tablet PO 100 mg DAILY NAOMY Administration Metoprolol Tartrate 25 mg 04/03/21 19:00 04/05/21 10:28 Metoprolol Tartrate 25 Mg Tablet PO Not Given Q12HR NAOMY Ondansetron HCl 4 mg 04/03/21 13:36 Ondansetron Inj 4 Mg/2 Ml Vial IV PUSH Q4H PRN Nausea Pravastatin Sodium 40 mg 04/03/21 19:00 04/05/21 10:28 Pravastatin Sodium 20 Mg Tablet PO Not Given DAILY NAOMY Radiology Results: ITS Impressions Pelvis Ultrasound 04/03/21 10:48 IMPRESSION: Unremarkable pelvic ultrasound exam. Abdomen/Pelvis CT 04/03/21 14:54 IMPRESSION: 1. No CT correlate for the patient's symptoms. Renal Ultrasound 04/04/21 14:15 IMPRESSION: 1. Sonographically unremarkable kidneys. Labs Labs: Laboratory Results - last 24 hr 04/04/21 04/04/21 04/04/21 11:19 11:27 11:27 WBC RBC Hgb Hct MCV MCH MCHC RDW Plt Count MPV ESR Sodium Potassium Chloride Carbon Dioxide Anion Gap BUN Creatinine Estim Creat Clear Calc Estimated GFR Glucose Calcium Phosphorus Total Creati
[2021-04-06 13:29] LABS: Complement Total CH50 >60 U/mL (31-60)
[2021-04-10 06:03] LABS: Albumin 62 %; Creat 24 Hr 1.69 g/24 h (0.50-2.15); Measured Kappa Chains <1.00 mg/dL (<2.00); Measured Lambda Chains <1.00 mg/dL (<2.00); Pro/Creat Ratio 430 mg/g creat (<=114)
[2021-04-14 15:11] LABS: Protein,total, 24 Hr Ur 728 mg/24h
== END 2021-04-05 14:02 | disposition home or self-care (01) | DRG 744 ==
LOC: ANHED 13:35 → ANHOB2 14:53
PROVIDERS: Internal Medicine Nephrology; Admitting Provider Obstetrics & Gynecology; Emergency Provider Emergency Medicine; PCP Family Medicine; Visit Provider Obstetrics & Gynecology
DX: C54.1 Malignant neoplasm of endometrium (principal); N17.9 Acute kidney failure, unspecified; N95.0 Postmenopausal bleeding; N93.8 Other specified abnormal uterine and vaginal bleeding; I12.9 Hypertensive chronic kidney disease with stage 1 through stage 4 chronic kidney disease, or unspecified chronic kidney disease; E11.22 Type 2 diabetes mellitus with diabetic chronic kidney disease; N18.9 Chronic kidney disease, unspecified; D64.9 Anemia, unspecified; M70.71 Other bursitis of hip, right hip; E78.5 Hyperlipidemia, unspecified; E86.0 Dehydration; Z86.73 Personal history of transient ischemic attack (TIA), and cerebral infarction without residual deficits
CPT/HCPCS: 36415; 74176; 76775; 76856; 80048; 80053; 80069; 81001; 82550; 82570; 84156; 84300; 85014; 85018; 85025; 85027; 85610; 85652; 85730; 86038; 86160; 86162; 86334; 86335; 86850; 86900; 86901; 88142; 88305; 88342; 96361; 96365; 96366; 96374; 96375; 99285; A9270; G0378; J0131; J2270; J2405; J7030; J7120

== ENCOUNTER 2021-08-13 07:20 | Outpatient (CLI) | payer OTHER, SELFPAY ==
--- NOTE | ~2021-08-13 | MM_ITS ---
EXAMINATION: MM screening [facility] BI w sarabjit HISTORY: Screening mammogram TECHNIQUE: Craniocaudal and mediolateral oblique 3-D tomosynthesis images were obtained and synthetic 2-D images were generated. CAD analysis was submitted and interpreted. COMPARISON: 01/17/2020, 12/21/2018 BREAST PARENCHYMAL COMPOSITION: There are scattered areas of fibroglandular density. FINDINGS: There are wax breast, consistent with benign findings. There is no suspicious mass, calcifi cation, or architectural distortion to suggest malignancy in either breast. There has been no suspici ous interval change. IMPRESSION: 1. No mammographic evidence of malignancy. 2. Recommend routine screening mammography in one year. BI-RADS Category 2: Benign finding(s). Reviewed, dictated and finalized at location A.
== END 2021-08-13 07:21 | disposition home or self-care (01) ==
LOC: ANHIMG 07:22
PROVIDERS: PCP Family Medicine; Visit Provider Student in an Organized Health Care Education/Training Program
DX: Z12.31 Encounter for screening mammogram for malignant neoplasm of breast (principal)
CPT/HCPCS: 77063; 77067

== ENCOUNTER 2021-12-07 16:07 | Outpatient (CLI) | payer OTHER, SELFPAY ==
--- NOTE | ~2021-12-07 | DEXA_ITS ---
Bone Density Report Name: JENNIFER MOLINA Age: 66 Sex: Female Ethnicity: White Date of : 1955 Indication: postmenopausal; screening for osteoporosis; height loss; cancer; hysterectomy; Referring Provider: UNKNOWN, UNKNOWN Study: Bone densitometry was performed. Exam Date: December 07, 2021 Accession number: [id number] Bone Density: Region BMD T-score Z-score Classification AP Spine(L1-L4) 1.197 1.4 3.1 Normal Femoral Neck (Left) 0.750 -0.9 0.6 Normal Total Hip (Left) 0.987 0.4 1.5 Normal Femoral Neck (Right) 0.794 -0.5 1.0 Normal Total Hip (Right) 1.015 0.6 1.8 Normal Total Hip Mean 1.001 0.5 1.7 Normal World Health Organization criteria for BMD impression classify patients as: Normal (T-score at or above -1.0), Osteopenia (T-score between -1.0 and -2.5), or Osteoporosis (T-score at or below -2.5). 10-year Fracture Risk: FRAX not reported because: All T-scores for Spine Total, Hip Total, Femoral Neck at or above -1.0 Clinical Information Provided by Patient: Has the following medical conditions: Cancer, Hysterectomy Patient maximum height was 66 Menopause Age: 66 No regular weight bearing exercise Does not regularly consume dairy products Drinks caffeinated beverages Onset of menses at age 14 Number of children 2 Impression: The patient has normal bone mass. Discussion: BONE DENSITY IS ABOVE THE MINIMUM DESIRABLE LEVEL AT ALL SKELETAL SITES TESTED. This patient?s bone mineral density is above the minimum desirable level (T-score -1.0 or better) at all sites measured. The patient should follow a healthful lifestyle (good nutrition with adequate calcium and vitamin D, and appropriate weight-bearing exercise). Follow-Up: Consider repeating this study in 5 years or sooner if there is some new clinical indication. Reported by: LINDY on 12/07/2021 4:28:00 PM. Reviewed, dictated and finalized at location [place]
== END 2021-12-07 16:08 | disposition home or self-care (01) ==
PROVIDERS: PCP Family Medicine
DX: C54.1 Malignant neoplasm of endometrium (principal); Z79.811 Long term (current) use of aromatase inhibitors
CPT/HCPCS: 77080

== ENCOUNTER → 2022-05-15 14:10 | Outpatient (CLI) | payer OTHER, SELFPAY ==
--- NOTE | ~2022-05-15 | US_ITS ---
EXAMINATION: US thyroid DATE: 05/15/2022 14:26 INDICATION: Nontoxic single thyroid nodule. TECHNIQUE: Multiple ultrasound images of the thyroid were obtained. COMPARISON: None. FINDINGS: The right thyroid lobe measures 8.4 x 4.3 x 4.2 cm. The left thyroid lobe measures 4.3 x 1.7 x 1.4 c m. In the right thyroid lobe, there is a 6.7 cm solid, hypoechoic, wider than tall nodule with mildred h margin without echogenic foci (TI-RADS TR4). IMPRESSION: 1. Right thyroid nodule. The patient reports a history of benign biopsy in 2021. Comparison with prio r imaging is recommended to determine if there is a change in size to warrant biopsy. Reviewed, dictated and finalized at location A. IMPRESSION: 1. Right thyroid nodule. The patient reports a history of benign biopsy in 2021 . Comparison with prior imaging is recommended to determine if there is a jiménez e in size to warrant biopsy.
== END ==
PROVIDERS: PCP Family Medicine; Visit Provider Family Medicine
DX: E04.1 Nontoxic single thyroid nodule (principal)
CPT/HCPCS: 76536

== ENCOUNTER 2022-10-21 07:22 | Outpatient (CLI) | payer OTHER, SELFPAY ==
--- NOTE | ~2022-10-21 | MM_ITS ---
EXAMINATION: MM screening [facility] BI w sarabjit HISTORY: Screening mammogram TECHNIQUE: Craniocaudal and mediolateral oblique 3-D tomosynthesis images were obtained and synthetic 2-D images were generated. CAD analysis was submitted and interpreted. COMPARISON: 08/13/2021, 01/17/2020, 12/21/2018 bilateral screening mammogram examinations BREAST PARENCHYMAL COMPOSITION: There are scattered areas of fibroglandular density. FINDINGS: Circumscribed approximately 5 mm opacity is noted in the posterior upper outer left breast, likely a benign intramammary lymph node, slightly increased in size since 08/13/2021. Interval diminished size of mass in the lower central mid to posterior right breast since 08/13/2021. Occasional benign calcifications. There is no evidence of suspicious mass, calcification, or architec tural distortion to suggest malignancy in either breast. There has been no suspicious interval change . IMPRESSION: 1. Benign findings. No mammographic evidence of malignancy. 2. Recommend routine screening mammography in one year. BI-RADS Category 2: Benign finding(s). Reviewed, dictated and finalized at location A.
== END 2022-10-21 07:23 | disposition home or self-care (01) ==
PROVIDERS: PCP Family Medicine
DX: Z12.31 Encounter for screening mammogram for malignant neoplasm of breast (principal)
CPT/HCPCS: 77063; 77067

== ENCOUNTER 2023-06-30 09:10 | Outpatient (CLI) | payer OTHER, SELFPAY ==
--- NOTE | ~2023-06-30 | US_ITS ---
EXAMINATION: US thyroid DATE: 06/30/2023 09:37 INDICATION: Nontoxic single thyroid nodule. TECHNIQUE: Multiple ultrasound images of the thyroid were obtained. COMPARISON: Ultrasound 05/15/2022 FINDINGS: The right thyroid lobe measures 7.8 x 4.5 x 4.5 cm. The left thyroid lobe measures 4.4 x 2.0 x 1.5 c m. In the right thyroid lobe, there is a 6.8 cm, solid, hypoechoic, wider than tall nodule with melly ins without echogenic foci (TI-RADS TR4). IMPRESSION: 1. Right thyroid nodule, stable from 05/15/2022. The patient reports a history of benign biopsy in . Reviewed, dictated and finalized at location A. IMPRESSION: 1. Right thyroid nodule, stable from 05/15/2022. The patient reports a history o f benign biopsy in 2021.
== END 2023-06-30 09:11 ==
LOC: MICIMG 09:12
PROVIDERS: Visit Provider Physician Assistant Medical
DX: E04.1 Nontoxic single thyroid nodule (principal)
CPT/HCPCS: 76536

== ENCOUNTER 2023-11-05 07:28 | Outpatient (CLI) | payer OTHER, SELFPAY ==
--- NOTE | ~2023-11-05 | MM_ITS ---
EXAMINATION: MM screening [facility] BI w sarabjit HISTORY: Screening TECHNIQUE: Craniocaudal and mediolateral oblique 3-D tomosynthesis images were obtained and synthetic 2-D images were generated. CAD analysis was submitted and interpreted. COMPARISON: 10/21/2022 BREAST PARENCHYMAL COMPOSITION: Not dense: There are scattered areas of fibroglandular density. FINDINGS: The left breast is stable without evidence for malignancy. There are developing small parti ally obscured masses in the lower central aspect of the right breast midposterior. IMPRESSION: 1. Developing obscured small masses lower central right breast. 2. Additional mammographic views and possible breast ultrasound are recommended. BI-RADS Category 0: Incomplete: Needs additional imaging evaluation. Reviewed, dictated and finalized at location B. IMPRESSION: 1. Developing obscured small masses lower central right breast. 2. Additional mammographic views and possible breast ultrasound are recommended . BI-RADS Category 0: Incomplete: Needs additional imaging evaluation.
== END 2023-11-05 07:29 | disposition home or self-care (01) ==
LOC: ANHIMG 07:31
PROVIDERS: PCP Family Medicine; Visit Provider Family Medicine
DX: N63.14 Unspecified lump in the right breast, lower inner quadrant (principal); Z12.31 Encounter for screening mammogram for malignant neoplasm of breast
CPT/HCPCS: 77063; 77067

== ENCOUNTER 2023-11-23 10:15 | Outpatient (CLI) | payer OTHER, SELFPAY ==
--- NOTE | ~2023-11-23 | MMUS_ITS ---
EXAMINATION: MM diagnostic [facility] RT w sarabjit, US breast RT complete HISTORY: Follow-up right breast asymmetries TECHNIQUE: Additional 3-D tomosynthesis images of the right breast were performed and synthetic 2-D i mages were generated. CAD analysis was submitted and interpreted. High resolution complete right lisa st ultrasound was performed. COMPARISON: Comparison to multiple prior studies sequentially, with oldest reviewed study dated 12/06. BREAST PARENCHYMAL COMPOSITION: Not dense: There are scattered areas of fibroglandular density. FINDINGS: MAMMOGRAPHIC FINDINGS: There is a mass in the upper central aspect of the right breast. There is mass in the lower inner roberto drant of the right breast. There is a focal asymmetry inferiorly in the right breast, posterior third on spot MLO view. ULTRASOUND: Complete US of all 4 quadrants of the right breast/s and retroareolar region was reviewed. At 3:00, 1 1 cm from the nipple there is a subcutaneous 5 mm mass with heterogeneous internal echotexture, no si gnificant posterior features or internal vascularity. At 6:00 there is a slightly irregular shaped ov al hypoechoic mass measuring 6 x 5 x 4 mm without posterior features. At 11:00, 5 cm from the nipple there is a slightly irregular shaped hypoechoic mass measuring 7 x 6 x 5 mm with mixed posterior atte nuation and no internal vascularity. IMPRESSION: 1. Multiple abnormal right breast masses. 2. Ultrasound-guided right breast biopsies recommended. BI-RADS category 4, suspicious findings. Reviewed, dictated and finalized at location B. IMPRESSION: 1. Multiple abnormal right breast masses. 2. Ultrasound-guided right breast biopsies recommended. BI-RADS category 4, suspicious findings.
== END 2023-11-23 10:16 | disposition home or self-care (01) ==
LOC: ANHIMG 10:16
PROVIDERS: PCP Family Medicine; Visit Provider Nurse Practitioner Family
DX: N63.14 Unspecified lump in the right breast, lower inner quadrant (principal); N63.12 Unspecified lump in the right breast, upper inner quadrant
CPT/HCPCS: 76641; 77061; 77065; G0279

== ENCOUNTER 2023-12-31 08:45 | Outpatient (CLI) | payer OTHER, SELFPAY ==
--- NOTE | ~2023-12-31 | MMUS_ITS ---
US breast biopsy RT w image, MM post biopsy diagnostic RT, US breast bx add lesion RT, US breast bx a dd lesion RT EXAMINATION: US GUIDED NEEDLE BIOPSY WITH VACUUM ASSISTANCE DATE: 12/31/2023 12:24 SYSTEMS INTEGRATION MANAGER INDICATION: Multiple right breast masses seen on prior examination. Ultrasound-guided core biopsy is requested to evaluate for malignancy. BREAST PARENCHYMAL COMPOSITION: Not dense: There are scattered areas of fibroglandular density. TECHNIQUE AND FINDINGS: The risks and potential benefits of the procedure were discussed with the patient, and written inform ed consent was obtained. After sterile preparation of the right breast, 1% lidocaine was utilized fo r local anesthesia. 1% lidocaine with epinephrine was used for deep anesthesia. 3 separate masses ar e identified in the right breast for biopsy purposes including a 5 mm mass at 3:00, 11 cm from the ni pple, a 7 mm mass at 6:00 and 6 mm mass at 11:00, 5 cm from the nipple. At 3:00, 11 cm from the nipple a 10G vacuum-assisted biopsy gun needle was advanced through to the ou ter edge of the region of interest from a superior approach utilizing sonographic guidance. A total of three tissue core samples were obtained through the lesion. An Inrad tissue marker clip was then placed at the biopsy site. Hemostasis was achieved. At 6:00 a 10G vacuum-assisted biopsy gun needle was advanced through to the outer edge of the region of interest from a inferior approach utilizing sonographic guidance. A total of three tissue core sa mples were obtained through the lesion. An Inrad tissue marker clip was then placed at the biopsy si te. Hemostasis was achieved. At 11:00, 5 cm from the nipple 10G vacuum-assisted biopsy gun needle was advanced through to the oute r edge of the region of interest from a superior approach utilizing sonographic guidance. A total of 3 tissue core samples were obtained through the lesion. An Inrad tissue marker clip was then placed at the biopsy site. Hemostasis was achieved. The patient tolerated procedure well and there was no evidence of immediate complication. The patien t was given verbal instructions partly is from the department. Right breast mammograms to document t issue marker clip placement. The tissue samples were submitted to surgical pathology for histologic a nalysis. IMPRESSION: 1. Successful ultrasound-guided vacuum-assisted biopsies of right breast masses with post procedure mammogram for marker placement. Please refer to pathology report for histologic analysis. Reviewed, dictated and finalized at location B. EMS INTEGRATION MANAGER IMPRESSION: 1. Successful ultrasound-guided vacuum-assisted biopsies of right breast estelle s with post procedure mammogram for marker placement. Please refer to pathology report for histologic analysis. IMPRESSION: 1. Successful ultrasound-guided vacuum-assisted biopsies of right breast estelle s with post procedure mammogram for marker placement. Please refer to pathology report for histologic analysis. IMPRESSION: 1. Successful ultrasound-guided vacuum-assisted biopsies of right breast estelle s with post procedure mammogram for marker placement. Please refer to pathology report for histologic analysis.
== END 2023-12-31 08:46 | disposition home or self-care (01) ==
PROVIDERS: PCP Family Medicine; Visit Provider Nurse Practitioner Family
DX: N60.01 Solitary cyst of right breast (principal); N62 Hypertrophy of breast; R92.1 Mammographic calcification found on diagnostic imaging of breast
CPT/HCPCS: 19083; 19084; 77065; 88305; A4648

== ENCOUNTER 2024-12-24 07:56 | Outpatient (CLI) | payer OTHER, SELFPAY ==
--- NOTE | ~2024-12-24 | DEXA_ITS ---
Bone Density Report Name: JENNIFER MOLINA Age: 69 Sex: Female Ethnicity: White Date of : 1955 Indication: postmenopausal; screening for osteoporosis; height loss; cancer; hysterectomy; Referring Provider: IVIS, JESSIE Ashton Study: Bone densitometry was performed. Exam Date: December 24, 2024 Accession number: [id number] Bone Density: Region BMD T-score Z-score Classification AP Spine(L1-L4) 1.128 0.7 2.6 Normal Femoral Neck (Left) 0.693 -1.4 0.2 Osteopenia Total Hip (Left) 0.899 -0.4 1.0 Normal Femoral Neck (Right) 0.731 -1.1 0.6 Osteopenia Total Hip (Right) 1.010 0.6 1.9 Normal Total Hip Mean 0.954 0.1 1.5 Normal World Health Organization criteria for BMD impression classify patients as: Normal (T-score at or above -1.0), Osteopenia (T-score between -1.0 and -2.5), or Osteoporosis (T-score at or below -2.5). 10-year Fracture Risk(1): Major Osteoporotic Fracture 8.5% Hip Fracture 0.9% Reported Risk Factors: [place] (), Neck BMD=0.693, BMI=35.0 (1) FRAX(R) Version 3.08. Fracture probability calculated for an untreated patient. Fracture probability may be lower if the patient has received treatment. Previous Exams: Region Exam Age BMD T-score BMD Change BMD Change Date g/cm2 vs Baseline vs Previous AP Spine (L1-L4) 12/24/2024 69 1.128 0.7 -0.069 (-5.8%) -0.069 (-5.8%) 12/07/2021 66 1.197 1.4 Total Hip(Left) 12/24/2024 69 0.899 -0.4 -0.088 (-8.9%) -0.088 (-8.9%) 12/07/2021 66 0.987 0.4 Total Hip(Right) 12/24/2024 69 1.010 0.6 -0.006 (-0.5%) -0.006 (-0.5%) 12/07/2021 66 1.015 0.6 *Denotes significance at 95% confidence level, LSC for AP Spine = 0.022 g/cm2, LSC for Total Hip = 0.027 g/cm2 Clinical Information Provided by Patient: Has the following medical conditions: Cancer, Hysterectomy Patient maximum height was 66 Menopause Age: 66 No regular weight bearing exercise Drinks caffeinated beverages Onset of menses at age 14 Number of children 2 Impression: The patient has low bone mass, based on the Left Femoral Neck T-score. The patient has an estimated ten-year risk of hip fracture of 0.9% and an estimated ten-year risk of major fracture of 8.5%, based on the WHO FRAX algorithm. The BMD for the AP Spine (L1-L4) decreased, changing by -5.8% since the last DXA exam. The BMD for the Total Hip(Left) decreased, changing by -8.9% since the last DXA exam. Discussion: BONE DENSITY IS LOW AT ONE OR MORE SKELETAL SITES. This patient's lowest T-score is low at one or more skeletal sites. It meets the World Health Organization's (WHO) criteria for ?low bone mass? (T-score between -1.0 and -2.5). The patient's 10-year risk of fracture as calculated by FRAX is less than the threshold where pharmacological therapy is recommended by the National Osteoporosis Foundation (NOF). However, all treatment decisions require clinical judgment and consideration of individual patient factors, including patient preferences, comorbidities, previous drug use, risk factors not captured in the FRAX model (e.g., frailty, falls, vitamin D deficiency, increased bone turnover, interval significant decline in bone density) and possible under or overestimation of fracture risk by FRAX. The patient should follow a healthful lifestyle (good nutrition with adequate calcium and vitamin D, and appropriate weight-bearing exercise). Follow-Up: Consider repeating this study in 2 years to reassess this patient's status, or sooner if there is some new clinical indication. Reported by: RACHELLE on 12/24/2024 8:38:00 AM. Reviewed, dictated and finalized at location A.
== END 2024-12-24 07:57 | disposition home or self-care (01) ==
LOC: ANHFOHIMG 07:58
PROVIDERS: PCP Family Medicine; Visit Provider Obstetrics & Gynecology Gynecologic Oncology
DX: M81.0 Age-related osteoporosis without current pathological fracture (principal); M85.89 Other specified disorders of bone density and structure, multiple sites; Z79.811 Long term (current) use of aromatase inhibitors; Z13.820 Encounter for screening for osteoporosis
CPT/HCPCS: 77080